=== PATIENT | male | born 1985 | race Caucasian/White ===

== ENCOUNTER 2019-08-01 20:31 | Emergency (ER) | payer BC ==
[~2019-08-01] VITALS: Ht 182.9 cm; Wt 94.5 kg
[2019-08-01 22:09] LABS: HEMATOCRIT 44.5 % (42.0-52.0); HEMOGLOBIN 15.3 g/dL (13.5-18.0); MEAN CELL VOLUME 84 fl (78-100); MEAN CORPUSCULAR HEMOGLOBIN 29 pg (27-31); MEAN CORPUSCULAR HGB CONC 34 g/dL (33-37); MEAN PLATELET VOLUME 9.3 fl (7.4-10.4); PLATELET COUNT 239 K/mm3 (130-400); RED BLOOD COUNT 5.28 M/mm3 (4.20-5.60); RED CELL DISTRIBUTION WIDTH 12.8 % (11.5-14.5); WHITE BLOOD COUNT 13.9 K/mm3 (4.8-10.8)
[2019-08-01 22:21] LABS: ALBUMIN 4.5 g/dL (3.5-5.0); POTASSIUM 3.6 mmol/L (3.5-5.1)
[2019-08-01 22:22] LABS: CALCIUM 9.9 mg/dL (8.3-10.5)
[2019-08-01 22:23] LABS: TOTAL PROTEIN 7.5 g/dL (6.4-8.3)
[2019-08-01 22:25] LABS: TOTAL BILIRUBIN 0.5 mg/dL (0.2-1.2)
[2019-08-01 22:31] LABS: LYMPHOCYTE 6 % (20-51); MONOCYTE 4 % (3-10); NEUTROPHILS 90 % (42-75)
[2019-08-01 23:27] LABS: ERYTHROCYTE SEDIMENTATION RATE 7 mm/hr (0-15)
[2019-08-01 23:39] LABS: URINE WBC 0 /hpf (0-3)
[2019-08-01 23:47] LABS: URINE APPEARANCE CLEAR; URINE BILIRUBIN NEGATIVE (NEGATIVE); URINE BLOOD NEGATIVE (NEGATIVE); URINE COLOR YELLOW; URINE GLUCOSE NEGATIVE (NEGATIVE); URINE KETONE NEGATIVE (NEGATIVE); URINE LEUKOCYTE ESTERASE NEGATIVE (NEGATIVE); URINE NITRATE NEGATIVE (NEGATIVE); URINE PROTEIN(semi-quant) NEGATIVE (NEGATIVE); URINE UROBILINOGEN NORMAL (NORMAL)
[2019-08-02] MEDS ORDERED: AMOXIL500 M1 PO (00:36)
[2019-08-02 01:34] VITALS: BP 128/76
== END 2019-08-02 01:34 | disposition home or self-care (01) ==
LOC: ED 20:31
PROVIDERS: Nurse Practitioner Family
DX: R50.9 Fever, unspecified (principal); R53.81 Other malaise; Z87.891 Personal history of nicotine dependence; W53.11XA Bitten by rat, initial encounter
CPT/HCPCS: 90715; J0561; J1885; J7120

== ENCOUNTER → 2024-02-23 | Outpatient (CLI) | payer OTHER ==
[~2024-02-23] MED LIST: AMOXIL500 M1 PO
[2024-02-23 10:37] LABS: BASO # 0.07 K/mm3 (0.02-0.10); HEMATOCRIT 48.8 % (42.0-52.0); HEMOGLOBIN 16.5 g/dL (13.5-18.0); LYMPH# 2.03 K/mm3 (1.50-4.00); MEAN CELL VOLUME 86 fl (78-100); MEAN CORPUSCULAR HEMOGLOBIN 29 pg (27-31); MEAN CORPUSCULAR HGB CONC 34 g/dL (33-37); MEAN PLATELET VOLUME 8.7 fl (7.4-10.4); MONO # 0.63 K/mm3 (0.20-0.80); NEU # 4.38 K/mm3 (1.40-6.50); PLATELET COUNT 272 K/mm3 (130-400); RED BLOOD COUNT 5.67 M/mm3 (4.20-5.60); RED CELL DISTRIBUTION WIDTH 12.3 % (11.5-14.5); WHITE BLOOD COUNT 7.4 K/mm3 (4.8-10.8)
[2024-02-23 10:46] LABS: ALBUMIN 4.5 g/dL (3.5-5.0)
[2024-02-23 10:49] LABS: TOTAL PROTEIN 7.1 g/dL (6.4-8.3)
[2024-02-23 10:50] LABS: TOTAL BILIRUBIN 0.6 mg/dL (0.2-1.2)
== END ==
LOC: LAB 10:22
PROVIDERS: Physician Assistant
DX: Z13.29 Encounter for screening for other suspected endocrine disorder (principal); R73.9 Hyperglycemia, unspecified; K90.9 Intestinal malabsorption, unspecified; E78.5 Hyperlipidemia, unspecified